=== PATIENT | male | born 1960 | race Caucasian/White ===

== ENCOUNTER 2024-09-20 13:42 | Outpatient (AMB) | payer MEDICARE, SELFPAY ==
--- NOTE | 2024-09-20 14:23 | HO.NEPHOV_ITS ---
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 He has been hypertensive for sometime and his need for medications and dose has increased over time. He denies using drugs or taking any excess sodium in the diet. He has no H/O hypokalemia , hypercalcemia, EVE, uncontrolled thyroid disorders, renal dysfunction or proteinuria. He denies significant weight gain, excess NSAID intake, CAD, carotid stenosis, PAD, CVA, CHF or renal dysfunction. He is compliant with medication and denies orthostatic symptoms. He has no H/O proteinuria, flushing, palpitations. He denies any edema, chest pain, headache or visual disturbances. [facility] Medical History (Updated 09/20/24 @ 14:51 by Catracho Dempsey MD) Hyperglycemia Hypercholesterolemia Hypertension Surgical History (Updated 09/20/24 @ 14:26 by Malissa Jha MA) History of cataract surgery H/O hernia repair Family History Father Diabetes mellitus Mother Cancer Social History (Updated 09/20/24 @ 14:24 by Malissa Jha MA) Alcohol intake: never Patient Tobacco Use Status: Never used Tobacco Review of Systems Const All systems reviewed & are unremarkable except as noted in HPI and below Physical Exam Vital Signs: Last Vital Signs Pulse 75 09/20/24 14:26 BP 166/70 H 09/20/24 14:26 Pulse Ox 96 09/20/24 14:26 Oxygen Delivery Method Room Air 09/20/24 14:26 BMI result Body Mass Index 26.5 Const General: comfortable and no acute distress Orientation/consciousness: patient oriented x3 HEENT Head: Yes normocephalic Mouth: Normal oral and palatal mucosa present Eyes EOM: EOMs intact bilaterally Neck Neck: Yes supple Resp Auscultation: clear to auscultation bilaterally Cardio Jugular venous distension: no JVD Rate: regular rate GI Palpation (GI): Soft to palpation Auscultation: normal bowel sounds General: Yes no CVA tenderness Back/Spine/Pelvis Back: no CVA tenderness Skin General skin exam: no rashes or lesions noted Neuro General: patient oriented x3 and moves all extremities Extrem General: Yes no pedal edema Assessment & Plan Assessment & Plan (1) Hypertension: Code(s): I10 - Essential (primary) hypertension Category: Medical Qualifiers: Hypertension type: primary hypertension Qualified Code(s): I10 - Essential (primary) hypertension Plan Low sodium diet; continued life style modification Secondary work up ordered; BPM ordered Shall do Doppler of renal arteries at next visit Encouraged to monitor BP at home Further management is pending evolving data Discussed about primary/ secondary hypertension Answered all questions/ Follow up given Orders: Orders Cortisol Random 3 Weeks I10 - Essential (primary) hypertension Creatinine 3 Weeks I10 - Essential (primary) hypertension Blood Urea Nitrogen 3 Weeks I10 - Essential (primary) hypertension Aldosterone 3 Weeks I10 - Essential (primary) hypertension Renin 3 Weeks I10 - Essential (primary) hypertension Aldost/Renin 3 Weeks I10 - Essential (primary) hypertension Metanephrines, Plasma 3 Weeks I10 - Essential (primary) hypertension TSH reflex Free T4 3 Weeks I10 - Essential (primary) hypertension Protein Creatinine Ratio, Ur 3 Weeks I10 - Essential (primary) hypertension Electrolytes 3 Weeks I10 - Essential (primary) hypertension Calcium 3 Weeks I10 - Essential (primary) hypertension AMB 24 HR B/P Monitor PLACEMENT Today I10 - Essential (primary) hypertension Coding Level of Care Code New Pt Level 4 (23149) Diagnoses Primary hypertension I10 Hypertension type: primary hypertension
[2024-09-20 14:26] VITALS: BP 166/70; PULSE 75; O2SAT 96; BMI 26.5
--- OUTSIDE RECORDS SUMMARY | 2024-09-20 15:04 | XMS_ITS | Clinical Summary ---
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 [address] [phone] Todd Palomares MD [address] [address] Health Maintenance Due Date Last Done Comments Pneumococcal Vaccine: 50+ Ye ars (1 of 2 - PCV) 1977 Colorectal Cancer Screening: Annual FOBT 2007 Colorectal Cancer Screening: Colonoscopy 2007 Colorectal Cancer Screening: Sigmoidoscopy 2007 Influenza Vaccine (#1) 2024 Hepatitis B Vaccine Aged Out No longe r eligible based on patient's age to complete this topic Insurance A[employer] Medicare Care Teams Glycerine Plant Operator Relationship Specialty Start Date End Date Josh Lima MD [address] [address] PCP - General Internal Medicine 08/25/24
--- OUTSIDE RECORDS SUMMARY | 2024-09-20 15:04 | XMS_ITS | Clinical Summary ---
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 60 tablet 1 07/19/2024 Active amLODIPine (NORVASC) 5 mg tablet Take 1 tablet (5 mg total) by mouth 1 (one) time each day. 30 each 5 08/22/2024 Active Encounters Date Type Department Care Team Description 09/06/2024 8:15 AM EDT Office Visit Internal Medicine [address] [phone] Josh Lima MD Primary hypertension (Primary Dx) 08/29/2024 Telephone Internal Medicine [address] [phone] Emily Villarreal MA 08/22/2024 10:00 AM EDT Consult Internal Medicine [address] [address] Josh Lima MD Primary hypertension (Primary Dx) 08/22/2024 Telephone Internal Medicine [address] [phone] Josh Lima MD Joseph: Fax cornelio 07/25/2024 2:45 PM EDT Office Visit Internal [address] [phone] Josh Lima MD Primary hypertension (Primary Dx); Hypercholesterolemia; Hyperglycemia from Last 3 Months Surgical History Surgery Date Site/Laterality Comments HERNIA REPAIR PROCEDURE: HISTORICAL HERNIA REPAIR/ING OTHER SURGICAL HISTORY 05/03/12 PROCEDURE: COLON CA SCRN NOT HI RSK IND; COMMENT: few sig. tics, all else normal OTHER SURGICAL HISTORY 2017 Right PROCEDURE: MO ARTHRS KNEE DRILL OSTEOCHONDRITIS DISSECANS [facility] Medical History Medical History Date Comments Hypertension 03/08/2016 DX:Hypertension Family History Medical History Relation Name Comments Hypertension Brother 1 Hypertension Brother 2 Hypertension Father heart problems, diabetic Other cancer Mother could be lung c ancer, Hypertension Sister Relation Name Status Comments Brother 1 Brother 2 Father Alive Mother lung cancer Sister Social History Tobacco Use Types Packs/Day Years Used Date Smoking Tobacco: Never Smokeless Tobacco: Never Alcohol Use Standard Drinks/Week Comments No 0 (1 standard drink = 0.6 oz pur e alcohol) Sex and Gender Information Value Date Recorded Sex Assigned at Not on file Legal Sex Male 1:55 PM EST Gender Identity Not on file Sexual Orientation Not on file Obstetrics History Last Filed Vital Signs Vital Sign Reading Time Taken Comments Blood Pressure 160/70 09/06/2024 8:42 AM EDT Pulse 71 09/06/2024 8:42 AM EDT Temperature 36.1 C (96.9 F) 09/06/2024 8:42 AM EDT Respiratory Rate - - Oxygen Saturation 98% 09/06/2024 8:42 AM EDT Inhaled Oxygen Concentration - - Weight 69.9 kg (154 lb) 09/06/2024 8:42 AM EDT Height 167.6 cm (5' 6 ) 10/30/2023 10:55 AM EDT Body Mass Index 24.86 10/30/2023 10:55 AM EDT Plan of Treatment Upcoming Encounters Date Type Department Care Team (Late st Contact Info) Description 12/07/2024 3:00 PM EDT Office Visit Internal Medicine - [place] 175 [facility] [address] [place] [address] Josh Lima MD 175 [facility] [address] [place] [address] Health Maintenance Due Date Last Done Comments COVID-19 Vaccine (#1) 1965 Pneumococcal Vaccine: 50+ Years (1 of 2 - PCV) 1977 Zoster Vaccines (1 of 2) 1977 DTaP,Tdap,and Td Vaccines (2 - Td or Tdap) 01/19/2022 01/20/2012 Colorectal Cancer Screening: Colonoscopy 07/04/2023 Depression Screening 07/04/2023 Falls Risk Assessment 07/04/2023 Hepatitis C Screening 07/04/2023 Medicare Annual Wellness Visit 07/04/2023 Social Influencers of Health Screening 07/04/2023 Influenza Vaccine (#1) 2024 Hypertension/CHF/CAD Annual BMP Blood Test 08/05/2025 08/05/2024, 09/08/2023 Cholesterol Screening (Lipid Panel) 08/05/2029 08/05/2024, 09/08/2023 RSV Immunization Adult Patients (1 - 1-dose 75+ series) 2033 HIB Vaccines Aged Out No longer eligi ble based on patient's age to complete this topic HPV Vaccines Aged Out No longer eligi ble based on patient's age to complete this topic Hepatitis A Vaccines Aged Out No long er eligible based on patient's age to complete this topic Hepatitis B Vaccines Aged Out No long er eligible based on patient's age to complete this topic IPV Vaccines Aged Out No longer eligi ble based on patient's age to complete this topic MMR Vaccines Aged Out No longer eligi ble based on patient's age to complete this topic Meningococcal ACWY Vaccine Aged Out N o longer eligible based on patient's age to complete this topic Meningococcal B Vaccine Aged Out No l onger eligible based on patient's age to complete this topic RSV Immunization Patients Under 20 months Aged Out No longer eligible b ased on patient's age to complete this topic Varicella Vaccines Aged Out No longer eligible based on patient's age to complete this topic Procedures Procedure Name Priority Date/Time Associated Diagnosis Comments CBC WITH AUTO DIFFERENTIAL Routine 08/05/2024 8:40 AM EDT Hypercholesterolem ia Primary hypertension Hyperglycemia HEMOGLOBIN A1C Routine 08/05/2024 8:40 AM EDT Hypercholesterolem ia Primary hypertension Hyperglycemia CBC AND DIFFERENTIAL Routine 08/05/2024 8:40 AM EDT Hypercholesterolem ia Primary hypertension Hyperglycemia COMPREHENSIVE METABOLIC PANEL Routine 08/05/2024 8:40 AM EDT Hypercholesterolem ia Primary hypertension Hyperglycemia LIPID PANEL WITH REFLEX TO DIRECT LDL Routine 08/05/2024 8:40 AM EDT Hypercholesterolem ia Primary hypertension Hyperglycemia THYROID STIMULATING HORMONE Routine 08/05/2024 8:40 AM EDT Hypercholesterolem ia Primary hypertension Hyperglycemia from Last 3 Months Results * Lipid panel with reflex to direct LDL (08/05/2024 8:40 AM EDT) Cholesterol 177 0 - 200 mg/dL LAB CHEMISTRY METHOD 08/05/2024 10:59 AM EDT [facility] Triglycerides 78 0 - 150 mg/dL LAB CHEMISTRY METHOD 08/05/2024 10:59 AM T [facility] HDL 67 >=40 mg/dL LAB CHEMISTRY METHOD 08/05/2024 10:59 AM EDT [facility] LDL Calculated 94 0 - 100 mg/dL LAB CHEMISTRY METHOD 08/05/2024 10:59 AM T [facility] VLDL Cholesterol Wyatt 15.6 mg/dL LAB CHEMISTRY METHOD 08/05/2024 10:59 AM [facility] Non HDL Chol. (LDL+VLDL) 110 <145 mg/dL LAB CHEMISTRY METHOD 08/05/2024 10:59 AM T [facility] Chol/HDL Ratio 2.6 0.0 - 4.4 LAB CHEMISTRY METHOD 08/05/2024 10:59 AM T [facility] Blood Venous blood specimen / Unknown Venipuncture / Unknown 08/05/2024 8:40 AM EDT 08/05/2024 8:40 AM EDT us Josh Lima MD LAB BLOOD ORDERABLES Final Resul t [facility] [address] [place] [address], * (ABNORMAL) CBC auto differential (08/05/2024 8:40 AM EDT) [facility] WBC 5.1 4.8 - 10.8 K/mcL LAB HEMETOLOGY METHOD 08/05/2024 10:31 AM [facility] RBC 4.90 4.50 - 5.50 M/mcL LAB HEMETOLOGY METHOD 08/05/2024 10:31 AM EDT [facility] Hemoglobin 14.6 13.5 - 17.5 g/dL LAB HEMETOLOGY METHOD 08/05/2024 10:31 AM [facility] Hematocrit 44.7 42.0 - 54.0 % LAB HEMETOLOGY METHOD 08/05/2024 10:31 AM [facility] MCV 90.7 79.0 - 98.0 FL LAB HEMETOLOGY METHOD 08/05/2024 10:31 AM [facility] MCH 29.6 27.0 - 32.0 pcg LAB HEMETOLOGY METHOD 08/05/2024 10:31 AM [facility] MCHC 32.7 32.0 - 37.0 g/dL LAB HEMETOLOGY METHOD 08/05/2024 10:31 AM [facility] RDW 11.9 11.0 - 15.0 % LAB HEMETOLOGY METHOD 08/05/2024 10:31 AM [facility] Platelets 189 130 - 400 K/mcL LAB HEMETOLOGY METHOD 08/05/2024 10:31 AM [facility] MPV 11.2(H) 7.0 - 11.0 FL LAB HEMETOLOGY METHOD 08/05/2024 10:31 AM [facility] NRBC 0.0 <1.0 % LAB HEMETOLOGY METHOD 08/05/2024 10:31 AM [facility] NRBC Absolute 0.00 <0.10 K/mcL LAB HEMETOLOGY METHOD 08/05/2024 10:31 AM [facility] Neutrophils Relative 40.4 % LAB HEMETOLOGY METHOD 08/05/2024 10:31 AM [facility] Lymphocytes Relative 43.4 % LAB HEMETOLOGY METHOD 08/05/2024 10:31 AM [facility] Monocytes Relative 11.5 % LAB HEMETOLOGY METHOD 08/05/2024 10:31 AM [facility] Eosinophils Relative 3.7 % LAB HEMETOLOGY METHOD 08/05/2024 10:31 AM [facility] Basophils Relative 0.6 % LAB HEMETOLOGY METHOD 08/05/2024 10:31 AM [facility] Immature Granulocytes Relative 0.4 % LAB HEMETOLOGY METHOD 08/05/2024 10:31 AM [facility] Neutrophils Absolute 2.08 1.50 - 7.00 K/mcL LAB HEMETOLOGY METHOD 08/05/2024 10:31 AM [facility] Lymphocytes Absolute 2.23 1.00 - 5.00 K/mcL LAB HEMETOLOGY METHOD 08/05/2024 10:31 AM [facility] Monocytes Absolute 0.59 0.20 - 1.00 K/mcL LAB HEMETOLOGY METHOD 08/05/2024 10:31 AM [facility] Eosinophils Absolute 0.19 0.00 - 0.50 K/mcL LAB HEMETOLOGY METHOD 08/05/2024 10:31 AM [facility] Basophils Absolute 0.03 0.00 - 0.20 K/mcL LAB HEMETOLOGY METHOD 08/05/2024 10:31 AM [facility] Immature Granulocytes Absolute 0.02 0.00 - 0.03 K/mcL LAB HEMETOLOGY METHOD 08/05/2024 10:31 AM EDT [facility] Blood Venous blood specimen / Unknown Venipuncture / Unknown 08/05/2024 8:40 AM EDT 08/05/2024 8:40 AM EDT us Josh Lima MD LAB BLOOD ORDERABLES Final Resul t Performing Organization Address [facility]/ZIP Co de Phone Number [facility] [address] [place] [address], [place] [phone] * Thyroid stimulating hormone (08/05/2024 8:40 AM EDT) TSH 1.74 0.40 - 4.00 mcIU/mL LAB CHEMISTRY METHOD 08/05/2024 11:34 AM EDT [facility] Blood Venous blood specimen / Unknown Venipuncture / Unknown 08/05/2024 8:40 AM EDT 08/05/2024 8:40 AM EDT us Josh Lima MD LAB BLOOD ORDERABLES Final Resul t Performing Organization Address [facility] de Phone Number [facility] [address] [place] [address], [place] [phone] * Hemoglobin A1c (08/05/2024 8:40 AM EDT) Hemoglobin A1C 5.0 <6.5 % LAB CHEMISTRY METHOD 08/05/2024 11:12 AM EDT [facility] Mean Bld Glu Estim. 97 mg/dL LAB CHEMISTRY METHOD 08/05/2024 11:12 AM EDT [facility] Blood Venous blood specimen / Unknown Venipuncture / Unknown 08/05/2024 8:40 AM EDT 08/05/2024 8:40 AM EDT us Josh Lima MD LAB BLOOD ORDERABLES Final Resul t [facility] [address] [place] [address], * (ABNORMAL) Comprehensive metabolic panel (08/05/2024 8:40 AM EDT) Sodium 137 133 - 145 mmol/L LAB CHEMISTRY METHOD 08/05/2024 10:59 AM T [facility] Potassium 4.3 3.5 - 5.5 mmol/L LAB CHEMISTRY METHOD 08/05/2024 10:59 AM [facility] Chloride 104 96 - 110 mmol/L LAB CHEMISTRY METHOD 08/05/2024 10:59 AM [facility] CO2 29 21 - 32 mmol/L LAB CHEMISTRY METHOD 08/05/2024 10:59 AM [facility] Anion Gap 4 3 - 11 LAB CHEMISTRY METHOD 08/05/2024 10:59 AM [facility] Glucose 106(H) 70 - 100 mg/dL LAB CHEMISTRY METHOD 08/05/2024 10:59 AM [facility] BUN 19 5 - 25 mg/dL LAB CHEMISTRY METHOD 08/05/2024 10:59 AM [facility] Creatinine 1.30 0.70 - 1.30 mg/dL LAB CHEMISTRY METHOD 08/05/2024 10:59 AM [facility] eGFR 61 >=60 mL/min/1. 73m2 LAB CHEMISTRY METHOD 08/05/2024 10:59 AM [facility] Comment:Calculation based on the Chronic Kidney Disease Epidemiology Collaboration (CKD-EPI) equation refit without adjustment for race. BUN/Creatinine Ratio 14.6 LAB CHEMISTRY METHOD 08/05/2024 10:59 AM [facility] Calcium 9.1 8.5 - 10.5 mg/dL LAB CHEMISTRY METHOD 08/05/2024 10:59 AM [facility] AST (SGOT) 18 10 - 42 unit/L LAB CHEMISTRY METHOD 08/05/2024 10:59 AM T [facility] ALT (SGPT) 20 10 - 60 unit/L LAB CHEMISTRY METHOD 08/05/2024 10:59 AM T [facility] Alkaline Phosphatase 66 42 - 121 unit/L LAB CHEMISTRY METHOD 08/05/2024 10:59 AM T [facility] Total Protein 7.1 6.0 - 8.0 g/dL LAB CHEMISTRY METHOD 08/05/2024 10:59 AM T [facility] Albumin 3.6 3.2 - 5.0 g/dL LAB CHEMISTRY METHOD 08/05/2024 10:59 AM [facility] Total Bilirubin 0.9 0.0 - 1.4 mg/dL LAB CHEMISTRY METHOD 08/05/2024 10:59 AM [facility] Blood Venous blood specimen / Unknown Venipuncture / Unknown 08/05/2024 8:40 AM EDT 08/05/2024 8:40 AM EDT us Josh Lima MD LAB BLOOD ORDERABLES Final Resul t [facility] [address] [place] [address], [place] [phone] from Last 3 Months Insurance [employer] MED[employer]ARE [employer]VANTAGE Care Teams Utility Teller Relationship Specialty Start Date End Date Josh Lima MD [address] [place] [address] PCP - General 05/05/23
== END 2024-09-20 14:47 | disposition home or self-care (01) ==
PROVIDERS: PCP Internal Medicine; Referring Provider Internal Medicine; Visit Provider Internal Medicine Nephrology
DX: I10 Essential (primary) hypertension (principal)
CPT/HCPCS: 99204

== ENCOUNTER → 2024-09-20 13:42 | Outpatient (BNVA) | payer MEDICARE, SELFPAY | PROVIDERS: PCP Internal Medicine; Referring Provider Internal Medicine; Visit Provider Internal Medicine Nephrology | DX: I10 Essential (primary) hypertension (principal) | CPT/HCPCS: 99202 ==

== ENCOUNTER → 2024-09-28 09:05 | Outpatient (BNVA) | payer MEDICARE, SELFPAY | PROVIDERS: PCP Internal Medicine; Visit Provider Internal Medicine Nephrology | DX: I10 Essential (primary) hypertension (principal) | CPT/HCPCS: 93786; 93788 ==

== ENCOUNTER 2024-10-27 10:11 | Outpatient (AMB) | payer MEDICARE, SELFPAY ==
--- NOTE | 2024-10-27 10:15 | HO.NEPHOV_ITS ---
Vital Signs 10/27/24 10:17 Height 5 ft 6 in Weight 163 lb 4 oz BMI 26.3 BP 160/70 H Blood Pressure Location Lt brachial Position Sitting Pulse 75 Pulse Source Pulse Oximeter Pulse Oximetry (%) 98 Oxygen Delivery Method Room Air Intake Visit Reasons: 5wk f/u w/labs-Conf Intake Note: Patient presents for a 5 week follow up with labs and 24 HR ABPM interpretation. 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 He has been hypertensive for sometime and his need for medications and dose has increased over time. He denies using drugs or taking any excess sodium in the diet. He has no H/O hypokalemia , hypercalcemia, EVE, uncontrolled thyroid disorders, renal dysfunction or proteinuria. He denies significant weight gain, excess NSAID intake, CAD, carotid stenosis, PAD, CVA, CHF or renal dysfunction. He is compliant with medication and denies orthostatic symptoms. He has no H/O proteinuria, flushing, palpitations. He denies any edema, chest pain, headache or visual disturbances. He had a 24 hour BPM which showed 24 hour average of 139/74 mm of Hg, with daytime average of 144/76 and night time average of 123/68 mm of Hg. [facility] Medical History Hyperglycemia Hypercholesterolemia Hypertension Surgical History History of cataract surgery H/O hernia repair Family History Father Diabetes mellitus Mother Cancer Social History Alcohol intake: never Patient Tobacco Use Status: Never used Tobacco Review of Systems Const All systems reviewed & are unremarkable except as noted in HPI and below Physical Exam Vital Signs: Last Vital Signs Pulse 75 10/27/24 10:17 BP 160/70 H 10/27/24 10:17 Pulse Ox 98 10/27/24 10:17 Oxygen Delivery Method Room Air 10/27/24 10:17 BMI result Body Mass Index 26.3 Const General: comfortable and no acute distress Orientation/consciousness: patient oriented x3 HEENT Head: Yes normocephalic Mouth: Normal oral and palatal mucosa present Eyes EOM: EOMs intact bilaterally Neck Neck: Yes supple Resp Auscultation: clear to auscultation bilaterally Cardio Jugular venous distension: no JVD Rate: regular rate GI Palpation (GI): Soft to palpation Auscultation: normal bowel sounds General: Yes no CVA tenderness Back/Spine/Pelvis Back: no CVA tenderness Skin General skin exam: no rashes or lesions noted Neuro General: patient oriented x3 and moves all extremities Extrem General: Yes no pedal edema Assessment & Plan Assessment & Plan (1) Hypertension: Code(s): I10 - Essential (primary) hypertension Category: Medical Qualifiers: Hypertension type: primary hypertension Qualified Code(s): I10 - Essential (primary) hypertension Plan Low sodium diet; continued life style modification Secondary work up and BPM reviewed Shall do Doppler of renal arteries with time Encouraged to monitor BP at home Asked to take losartan AM and Amlodipine 5 mg Discussed about primary/ secondary hypertension Answered all questions/ Follow up given Orders: Orders Protein Creatinine Ratio, Ur 6 Months I10 - Essential (primary) hypertension Blood Urea Nitrogen 6 Months I10 - Essential (primary) hypertension Creatinine 6 Months I10 - Essential (primary) hypertension Electrolytes 6 Months I10 - Essential (primary) hypertension Coding Level of Care Code Est Pt Level 4 (40884) Diagnoses Primary hypertension I10 Hypertension type: primary hypertension
[2024-10-27 10:17] VITALS: BP 160/70; PULSE 75; O2SAT 98; BMI 26.3
--- OUTSIDE RECORDS SUMMARY | 2024-10-27 11:38 | XMS_ITS | Clinical Summary ---
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 Name Role Phone Jsoh Lima MD Primary Care Provider [phone] Allergies No known active allergies Medications losartan [...] 8:15 AM EDT Office Visit Internal Medicine [address] [phone] Josh Lima MD Primary hypertension (Primary Dx) 08/29/2024 Telephone Internal Medicine [address] [phone] Emily Villarreal [place] 08/22/2024 10:00 AM EDT Consult Internal Medicine [address] [phone] Josh Lima MD Primary hypertension (Primary Dx) 08/22/2024 Telephone Internal Medicine [address] [phone] Josh Lima MD Joseph: Fax cornelio from Last 3 Months Surgical History Surgery Date Site/Laterality Comments HERNIA REPAIR PROCEDURE: HISTORICAL HERNIA REPAIR/ING OTHER SURGICAL HISTORY 05/03/12 PROCEDURE: COLON CA SCRN NOT HI RSK IND; COMMENT: few sig. 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 [facility] Medical [...] PM EDT Office Visit Internal Medicine - [place] [address] [facility] [address] [place] [phone] Josh Lima MD 175 [facility] [address] [place] [address] Health Maintenance Due Date Last Done Comments Pneumococcal Vaccine: 50+ Years (1 of 1 - PCV) 2008 Zoster Vaccines (1 of 2) 2008 DTaP,Tdap,and Td Vaccines (2 - Td or Tdap) 01/19/2022 01/20/2012 Colorectal Cancer Screening: Colonoscopy 07/04/2023 Falls Risk Assessment 07/04/2023 Hepatitis C Screening 07/04/2023 Medicare Annual Wellness Visit 07/04/2023 Social Influencers of Health Screening 07/04/2023 COVID-19 Vaccine (1 - 2023-2 5 season) 2023 Depression Screening 03/09/2024 Influenza Vaccine (#1) 2024 Hypertension/CHF/CAD Annual BMP Blood Test 10/25/2025 10/25/2024, 08/05/2024, 09/08/2023 Cholesterol Screening (Lipid Panel) 08/05/2029 [...] Procedure Name Priority Date/Time Associated Diagnosis Comments CALCIUM Routine 10/25/2024 9:19 AM EDT Primary hypertension ELECTROLYTE PANEL Routine 10/25/2024 9:1 9 AM EDT Primary hypertension PROTEIN AND CREATININE WITH RATIO, URINE Routine 10/25/2024 9:19 AM EDT Primary hypertension THYROID STIMULATING HORMONE WITH REFLEX TO FREE T4 AND FREE T3 Routine 10/25/2024 9:19 AM EDT Primary hypertension BUN Routine 10/25/2024 9:19 AM EDT Primary hypertension CREATININE, SERUM Routine 10/25/2024 9:1 9 AM EDT Primary hypertension CORTISOL Routine 10/25/2024 9:19 AM EDT Primary hypertension CBC WITH AUTO DIFFERENTIAL Routine 08/05/2024 8:40 AM EDT Hypercholesterolemia Primary hypertension Hyperglycemia HEMOGLOBIN A1C Routine 08/05/2024 8:40 AM EDT Hypercholesterolemia Primary hypertension Hyperglycemia CBC AND DIFFERENTIAL Routine 08/05/2024 8:40 AM EDT Hypercholesterolemia Primary hypertension Hyperglycemia COMPREHENSIVE METABOLIC PANEL Routine 08/05/2024 8:40 AM EDT Hypercholesterolemia Primary hypertension Hyperglycemia LIPID PANEL WITH REFLEX TO DIRECT LDL Routine 08/05/2024 8:40 AM EDT Hypercholesterolemia Primary hypertension Hyperglycemia THYROID STIMULATING HORMONE Routine 08/05/2024 8:40 AM EDT Hypercholesterolemia Primary hypertension Hyperglycemia from Last 3 Months Results * Thyroid stimulating hormone with reflex to free t4 and free t3 (10/25/2024 9:19 AM EDT) TSH 1.94 0.40 - 4.00 mcIU/mL LAB CHEMISTRY METHOD 10/25/2024 12:39 PM EDT [facility] Blood Venous blood specimen / Unknown Venipuncture / Unknown 10/25/2024 9:19 AM EDT 10/25/2024 10:33 AM EDT us Catracho Dempsey MD LAB BLOOD ORDERABLES Final Resul t [facility] [address] [place] [address], [place] [phone] * (ABNORMAL) Protein and creatinine with ratio, urine (10/25/2024 9:19 AM EDT) Protein, Urine 58 mg/dL LAB CHEMISTRY METHOD 10/25/2024 11:05 AM EDT [facility] Prot/Creat, Ur 0.89(H) <=0.20 mg/mg creat LAB CHEMISTRY METHOD 10/25/2024 11:05 AM EDT [facility] Creatinine, Urine 65.0 mg/dL LAB CHEMISTRY METHOD 10/25/2024 11:05 AM EDT [facility] Urine Urine specimen obtained by clean catch procedure / Unknown Non-blood Collection / Unknown 10/25/2024 9:19 AM EDT 10/25/2024 10:35 AM EDT us Catracho Dempsey MD LAB URINE ORDERABLES Final Resul t Performing Organization Address [facility] de Phone Number [facility] [address] [place] [address], * Creatinine (10/25/2024 9:19 AM EDT) Pathologist [facility] Creatinine 1.21 0.70 - 1.30 mg/dL LAB CHEMISTRY METHOD 10/25/2024 11:23 AM EDT [facility] eGFR 66 >=60 mL/min/1. 73m2 LAB CHEMISTRY METHOD 10/25/2024 11:23 AM EDT [facility] Comment:Calculation based on the Chronic Kidney Disease Epidemiology Collaboration (CKD-EPI) equation refit without adjustment for race. Blood Venous blood specimen / Unknown Venipuncture / Unknown 10/25/2024 9:19 AM EDT 10/25/2024 10:33 AM EDT us Catracho Dempsey MD LAB BLOOD ORDERABLES Final Resul t Performing Organization Address [facility]/ZIP Co de Phone Number [facility] [address] [place] [address], * BUN (10/25/2024 9:19 AM EDT) BUN 17 5 - 25 mg/dL LAB CHEMISTRY METHOD 10/25/2024 11:23 AM EDT [facility] Blood Venous blood specimen / Unknown Venipuncture / Unknown 10/25/2024 9:19 AM EDT 10/25/2024 10:33 AM EDT Catracho Dempsey MD LAB BLOOD ORDERABLES Final Resul t Performing Organization Address [facility] de Phone Number [facility] [address] [place] [address], * Cortisol (10/25/2024 9:19 AM EDT) Cortisol 13.4 mcg/dL LAB CHEMISTRY METHOD 10/25/2024 12:39 PM EDT [facility] Blood Venous blood specimen / Unknown Venipuncture / Unknown 10/25/2024 9:19 AM EDT 10/25/2024 10:33 AM EDT Narrative [facility] - 10/25/2024 12:39 PM EDT CORTISOL REFERENCE RANGE 8 AM SPEC: 5.0-23.0 mcg/dL 4 PM SPEC: 3.0-16.0 mcg/dL 8 PM SPEC: <5.0 mcg/dL Catracho Dempsey MD LAB BLOOD ORDERABLES Final Resul t Performing Organization Address [facility]/ZIP Co de Phone Number [facility] [address] [place] [address], * Calcium (10/25/2024 9:19 AM EDT) Calcium 9.2 8.5 - 10.5 mg/dL LAB CHEMISTRY METHOD 10/25/2024 11:23 AM EDT [facility] Blood Venous blood specimen / Unknown Venipuncture / Unknown 10/25/2024 9:19 AM EDT 10/25/2024 10:33 AM EDT us Catracho Dempsey MD LAB BLOOD ORDERABLES Final Resul t Performing Organization Address [facility] Co de Phone Number [facility] [address] [place] [address], [place] [phone] * Electrolyte panel (10/25/2024 9:19 AM EDT) Sodium 140 133 - 145 mmol/L LAB CHEMISTRY METHOD 10/25/2024 11:23 AM EDT [facility] Potassium 5.1 3.5 - 5.5 mmol/L LAB CHEMISTRY METHOD 10/25/2024 11:23 AM EDT [facility] Chloride 107 96 - 110 mmol/L LAB CHEMISTRY METHOD 10/25/2024 11:23 AM EDT [facility] CO2 30 21 - 32 mmol/L LAB CHEMISTRY METHOD 10/25/2024 11:23 AM EDT [facility] Anion Gap 3 3 - 11 LAB CHEMISTRY METHOD 10/25/2024 11:23 AM EDT [facility] Blood Venous blood specimen / Unknown Venipuncture / Unknown 10/25/2024 9:19 AM EDT 10/25/2024 10:33 AM EDT us Catracho Dempsey MD LAB BLOOD ORDERABLES Final Resul t Performing Organization Address City/[facility]/ZIP Co de Phone Number [facility] [address] [place] [address], [place] [phone] * Lipid panel with reflex to direct LDL (08/05/2024 8:40 AM EDT) Cholesterol 177 0 - 200 mg/dL LAB CHEMISTRY METHOD 08/05/2024 10:59 AM EDT [facility] Triglycerides 78 0 - 150 mg/dL LAB CHEMISTRY METHOD 08/05/2024 10:59 AM EDT [facility] HDL 67 >=40 mg/dL LAB CHEMISTRY METHOD 08/05/2024 10:59 AM EDT [facility] LDL Calculated 94 0 - 100 mg/dL LAB CHEMISTRY METHOD 08/05/2024 10:59 AM EDT [facility] VLDL Cholesterol Wyatt 15.6 mg/dL LAB CHEMISTRY METHOD 08/05/2024 10:59 AM EDT [facility] Non HDL Chol. (LDL+VLDL) 110 <145 mg/dL LAB CHEMISTRY METHOD 08/05/2024 10:59 AM EDT [facility] Chol/HDL Ratio 2.6 0.0 - 4.4 LAB CHEMISTRY METHOD 08/05/2024 10:59 AM EDT [facility] Blood Venous blood specimen / Unknown Venipuncture / Unknown 08/05/2024 8:40 AM EDT 08/05/2024 8:40 AM EDT us Josh Lima MD LAB BLOOD ORDERABLES Final Resul t [facility] [address] [place] [address], * (ABNORMAL) CBC auto differential (08/05/2024 8:40 AM EDT) WBC 5.1 4.8 - 10.8 K/mcL LAB HEMETOLOGY METHOD 08/05/2024 10:31 AM EDT [facility] RBC 4.90 4.50 - 5.50 M/mcL LAB HEMETOLOGY METHOD 08/05/2024 10:31 AM EDT [facility] Hemoglobin 14.6 13.5 - 17.5 g/dL LAB HEMETOLOGY METHOD 08/05/2024 10:31 AM EDT [facility] Hematocrit 44.7 42.0 - 54.0 % LAB HEMETOLOGY METHOD 08/05/2024 10:[address] [facility] MCV 90.7 79.0 - 98.0 FL LAB HEMETOLOGY METHOD 08/05/2024 10:[address] [facility] MCH 29.6 27.0 - 32.0 pcg LAB HEMETOLOGY METHOD 08/05/2024 10:[address] [facility] MCHC 32.7 32.0 - 37.0 g/dL LAB HEMETOLOGY METHOD 08/05/2024 10:[address] [facility] RDW 11.9 11.0 - 15.0 % LAB HEMETOLOGY METHOD 08/05/2024 10:[address] [facility] Platelets 189 130 - 400 K/mcL LAB HEMETOLOGY METHOD 08/05/2024 10:[address] [facility] MPV 11.2(H) 7.0 - 11.0 FL LAB HEMETOLOGY METHOD 08/05/2024 10:[address] [facility] NRBC 0.0 <1.0 % LAB HEMETOLOGY METHOD 08/05/2024 10:[address] [facility] NRBC Absolute 0.00 <0.10 K/mcL LAB HEMETOLOGY METHOD 08/05/2024 10:[address] [facility] Neutrophils Relative 40.4 % LAB HEMETOLOGY METHOD 08/05/2024 10:[address] [facility] Lymphocytes Relative 43.4 % LAB HEMETOLOGY METHOD 08/05/2024 10:[address] [facility] Monocytes Relative 11.5 % LAB HEMETOLOGY METHOD 08/05/2024 10:[address] [facility] Eosinophils Relative 3.7 % LAB HEMETOLOGY METHOD 08/05/2024 10:[address] [facility] Basophils Relative 0.6 % LAB HEMETOLOGY METHOD 08/05/2024 10:31 AM EDT [facility] Immature Granulocytes Relative 0.4 % LAB HEMETOLOGY METHOD 08/05/2024 10:31 AM EDT [facility] Neutrophils Absolute 2.08 1.50 - 7.00 K/mcL LAB HEMETOLOGY METHOD 08/05/2024 10:31 AM EDT [facility] Lymphocytes Absolute 2.23 1.00 - 5.00 K/mcL LAB HEMETOLOGY METHOD 08/05/2024 10:31 AM EDT [facility] Monocytes Absolute 0.59 0.20 - 1.00 K/mcL LAB HEMETOLOGY METHOD 08/05/2024 10:31 AM EDT [facility] Eosinophils Absolute 0.19 0.00 - 0.50 K/mcL LAB HEMETOLOGY METHOD 08/05/2024 10:31 AM EDT [facility] Basophils Absolute 0.03 0.00 - 0.20 K/mcL LAB HEMETOLOGY METHOD 08/05/2024 10:31 AM EDT [facility] Immature Granulocytes Absolute 0.02 0.00 - 0.03 K/mcL LAB HEMETOLOGY METHOD 08/05/2024 10:31 AM EDT [facility] Blood Venous blood specimen / Unknown Venipuncture / Unknown 08/05/2024 8:40 AM EDT 08/05/2024 8:40 AM EDT us Josh Lima MD LAB BLOOD ORDERABLES Final Resul t [facility]) [facility] [address] [place] [address], * Thyroid stimulating hormone (08/05/2024 8:40 AM EDT) TSH 1.74 0.40 - 4.00 mcIU/mL LAB CHEMISTRY METHOD [facility]/05[facility] Blood Venous blood specimen / Unknown Venipuncture / Unknown 08/05/2024 8:40 AM EDT 08/05/2024 8:40 AM EDT us Josh Lima MD LAB BLOOD ORDERABLES Final Resul t Performing Organization Address [facility]/ZIP Co de Phone Number [facility] [address] [place] [address], [place] [phone] * Hemoglobin A1c (08/05/2024 8:40 AM EDT) Pathologist [facility] Hemoglobin A1C 5.0 <6.5 % LAB CHEMISTRY METHOD 08/05/2024 11:12 AM EDT [facility] Mean Bld Glu Estim. 97 mg/dL LAB CHEMISTRY METHOD 08/05/2024 11:12 AM EDT [facility] Blood Venous blood specimen / Unknown Venipuncture / Unknown 08/05/2024 8:40 AM EDT 08/05/2024 8:40 AM EDT us Josh Lima MD LAB BLOOD ORDERABLES Final Resul t Performing Organization Address [facility]/ZIP Co de Phone Number [facility] [address] [place] [address], [place] [phone] * (ABNORMAL) Comprehensive metabolic panel (08/05/2024 8:40 AM EDT) Pathologist [facility] Sodium 137 133 - 145 mmol/L LAB CHEMISTRY METHOD 08/05/2024 10:59 AM EDT [facility] Potassium 4.3 3.5 - 5.5 mmol/L LAB CHEMISTRY METHOD 08/05/2024 10:59 AM EDT [facility] Chloride 104 96 - 110 mmol/L LAB CHEMISTRY METHOD 08/05/2024 10:59 AM EDT [facility] CO2 29 21 - 32 mmol/L LAB CHEMISTRY METHOD 08/05/2024 10:[address] [facility] Anion Gap 4 3 - 11 LAB CHEMISTRY METHOD 08/05/2024 10:[address] [facility] Glucose 106(H) 70 - 100 mg/dL LAB CHEMISTRY METHOD 08/05/2024 10:[address] [facility] BUN 19 5 - 25 mg/dL LAB CHEMISTRY METHOD 08/05/2024 10:[address] [facility] Creatinine 1.30 0.70 - 1.30 mg/dL LAB CHEMISTRY METHOD 08/05/2024 10:[address] [facility] eGFR 61 >=60 mL/min/1. 73m2 LAB CHEMISTRY METHOD 08/05/2024 10:[address] [facility] Comment:Calculation based on the Chronic Kidney Disease Epidemiology Collaboration (CKD-EPI) equation refit without adjustment for race. BUN/Creatinine Ratio 14.6 LAB CHEMISTRY METHOD 08/05/2024 10:[address] [facility] Calcium 9.1 8.5 - 10.5 mg/dL LAB CHEMISTRY METHOD 08/05/2024 10:[address] [facility] AST (SGOT) 18 10 - 42 unit/L LAB CHEMISTRY METHOD 08/05/2024 10:[address] [facility] ALT (SGPT) 20 10 - 60 unit/L LAB CHEMISTRY METHOD 08/05/2024 10:[address] [facility] Alkaline Phosphatase 66 42 - 121 unit/L LAB CHEMISTRY METHOD 08/05/2024 10:[address] [facility] Total Protein 7.1 6.0 - 8.0 g/dL LAB CHEMISTRY METHOD 08/05/2024 10:[address] [facility] Albumin 3.6 3.2 - 5.0 g/dL LAB CHEMISTRY METHOD 08/05/2024 10:[address] [facility] Total Bilirubin 0.9 0.0 - 1.4 mg/dL LAB CHEMISTRY METHOD 08/05/2024 10:59 AM EDT [facility] Blood Venous blood specimen / Unknown Venipuncture / Unknown 08/05/2024 8:40 AM EDT 08/05/2024 8:40 AM EDT us Josh Lima MD LAB BLOOD ORDERABLES Final Resul t [facility] [address] [place] [address], from Last 3 Months Insurance [employer] MED[employer]ARE [employer]AGE Care Teams Golf Course Designer Relationship Specialty Start Date End Date Josh Lima MD [address] [address] PCP - General 05/05/23
== END 2024-10-27 10:37 | disposition home or self-care (01) ==
LOC: HO.HKAS 10:11
PROVIDERS: PCP Internal Medicine; Visit Provider Internal Medicine Nephrology
DX: I10 Essential (primary) hypertension (principal)
CPT/HCPCS: 99214

== ENCOUNTER → 2024-10-27 10:11 | Outpatient (BNVA) | payer MEDICARE, SELFPAY | PROVIDERS: PCP Internal Medicine; Visit Provider Internal Medicine Nephrology | DX: I10 Essential (primary) hypertension (principal); R73.9 Hyperglycemia, unspecified; E78.00 Pure hypercholesterolemia, unspecified | CPT/HCPCS: 99212 ==